=== PATIENT | female | born 1970 | race Caucasian/White ===

== ENCOUNTER 2021-06-15 04:28 | Day surgery (SDC) | payer BC, OTHER ==
[2021-06-12 15:51] VITALS: BMI 22.7
[2021-06-15 11:32] VITALS: TEMP 97
[2021-06-15 12:17] VITALS: BP 102/67; PULSE 67
== END 2021-06-15 12:17 | disposition home or self-care (01) ==
LOC: JASU-ENDO 04:28
PROVIDERS: ATTEND Internal Medicine Gastroenterology
PROC: 0DB68ZX Excision of Stomach, Via Natural or Artificial Opening Endoscopic, Diagnostic (ICD-10-PCS; principal; 2021-06-15 11:14)
DX: K29.50 Unspecified chronic gastritis without bleeding (principal); K63.89 Other specified diseases of intestine
CPT/HCPCS: 81025; 88305-TC; 88342-TC

== ENCOUNTER 2023-06-06 04:24 | Day surgery (SDC) | payer BC ==
[2023-06-03 12:35] VITALS: BMI 24.4
[2023-06-06 09:49] VITALS: TEMP 98
[2023-06-06 10:22] VITALS: BP 103/58; PULSE 87; RESP 15
== END 2023-06-06 10:35 | disposition home or self-care (01) ==
LOC: JASU-ENDO 04:24
PROVIDERS: ATTEND Internal Medicine Gastroenterology
PROC: 0DBN8ZX Excision of Sigmoid Colon, Via Natural or Artificial Opening Endoscopic, Diagnostic (ICD-10-PCS; 2023-06-06)
PROC: 0DBK8ZX Excision of Ascending Colon, Via Natural or Artificial Opening Endoscopic, Diagnostic (ICD-10-PCS; principal; 2023-06-06 09:30)
DX: Z12.11 Encounter for screening for malignant neoplasm of colon (principal); D12.2 Benign neoplasm of ascending colon; D12.5 Benign neoplasm of sigmoid colon
CPT/HCPCS: 81025; 88305-TC

== ENCOUNTER 2024-06-25 06:12 | Day surgery (SDC) | payer BC ==
[2024-06-18 12:20] VITALS: BMI 24.4
[2024-06-25 10:47] VITALS: BP 102/56; PULSE 60; RESP 14; TEMP 98.2
== END 2024-06-25 10:24 | disposition home or self-care (01) ==
LOC: JASU-ENDO 06:12
PROVIDERS: ATTEND Internal Medicine Gastroenterology
PROC: 0DB98ZX Excision of Duodenum, Via Natural or Artificial Opening Endoscopic, Diagnostic (ICD-10-PCS; 2024-06-25)
PROC: 0DB78ZX Excision of Stomach, Pylorus, Via Natural or Artificial Opening Endoscopic, Diagnostic (ICD-10-PCS; 2024-06-25)
PROC: 0DB68ZX Excision of Stomach, Via Natural or Artificial Opening Endoscopic, Diagnostic (ICD-10-PCS; 2024-06-25)
PROC: 0DJD8ZZ Inspection of Lower Intestinal Tract, Via Natural or Artificial Opening Endoscopic (ICD-10-PCS; principal; 2024-06-25 09:00)
DX: D50.9 Iron deficiency anemia, unspecified (principal)
CPT/HCPCS: 81025; 88305-TC; 88342-TC